=== PATIENT | male | born 1975 | race Hispanic/Latino ===

== ENCOUNTER 2020-03-17 21:19 | Observation (INO) | payer OTHER ==
[~2020-03-17] VITALS: Ht 162.6 cm; Wt 86.9 kg
[2020-03-17 21:30] VITALS: BP 135/87; PULSE 69; RESP 18; TEMP 97.5
[2020-03-17] MEDS ORDERED: ACETAMINOPHEN-CODEINE 300/30MG TAB PO PRN (22:00)
[2020-03-17] MEDS ORDERED: CEFAZOLIN SODIUM 1 GM VIAL IVP SCH (22:00)
--- NOTE | 2020-03-17 22:00 | NUR ---
I called to his answering service at 2141, was given the number for direct connection with the doctor. 2151:At this time got through to informed him patient was already here. Orders received to start patient on Ancef 1 gm IV every 8 hours, Xray of rt hand, MS 2 MG IV every 1 hour as needed for severe pain 7-10, tylenol #3 one to two tablets every 4 to 6 hours prn moderate pain 4-6, Regular diet, NPO after midnight, consent Exploration right thumb possible pinning. 2199: I called household refrigerator mechanic regarding possible surgery for this patient, informed her had already faxed the order to her and OR procedures. She asked what time the doctor wanted to do the surgery. Informed her that he did not specify only stated to make sure the patient was on the OR roster.
[2020-03-17 23:16] VITALS: BP 114/59; PULSE 72; RESP 17; TEMP 98.2
[2020-03-17] MEDS ORDERED: ACETAMINOPHEN-CODEINE 300/30MG TAB ONE (23:27)
[2020-03-18] VITALS (18 sets, daily range): BP systolic 104–125; BP diastolic 60–90; PULSE 54–83; RESP 12–19; TEMP 97.3–98.1
[2020-03-18] MEDS ORDERED: CEFAZOLIN SODIUM 1 GM VIAL ONE ×2 (07:32→13:08)
[2020-03-18] MEDS: MORPHINE SULFATE 2 MG/ML 1ML SYG IM PRN ×2 (11:00→11:01)
--- NOTE | 2020-03-18 12:16 | NUR ---
CM NOTE/IA MEET WITH PATIENT IN ROOM. PER PATIENT IS INDEPENDENT WITH ADLS, LIVES WITH SPOUSE AND HER 4 ADULT CHILDREN, DRIVES,NO DME IN USE AND FEELS SAFE TO RETURN HOME AFTER HOSPITAL DISCHARGE. CURRENTLY PENDING SURGERY WITH DR. LUTZ TO RIGHT THUMB Addendum: 03/18/20 at 1217 by NICOHLE LEE RN CM Amended: Links added.
[2020-03-18] MEDS ORDERED: LIDOCAINE HCL-MPF 2% 10ML AMP IJ ONE ×2 (13:12→13:53)
[2020-03-18] MEDS ORDERED: FENTANYL CITRATE PF 50 MCG/1 ML 2ML VIAL ONE (13:31)
[2020-03-18] MEDS ORDERED: MIDAZOLAM HCL 1 MG/ML 2ML VIAL ONE (13:31)
[2020-03-18] MEDS ORDERED: LACTATED RINGERS 1000ML 1,000 ML IV ONE (13:39)
[2020-03-18] MEDS ORDERED: KETAMINE 50MG/ML SYRINGE 50 MG/ML DISP.SYRIN IV ONE (13:47)
[2020-03-18] MEDS ORDERED: PROPOFOL 10 MG/ML 20ML VIAL IV ONE (13:53)
[2020-03-18] MEDS ORDERED: CEFAZOLIN SODIUM 1 GM VIAL IVP SCH (14:00)
== END 2020-03-18 20:10 | disposition home or self-care (01) ==
LOC: OBSVTOIN 21:19 → 3DH 21:19 → INTOOBSV 21:19
PROVIDERS: ADMIT Surgery Plastic and Reconstructive Surgery; ATTEND Surgery Plastic and Reconstructive Surgery
DX: S62.511A Displaced fracture of proximal phalanx of right thumb, initial encounter for closed fracture (principal); S62.521A Displaced fracture of distal phalanx of right thumb, initial encounter for closed fracture; S61.011A Laceration without foreign body of right thumb without damage to nail, initial encounter; W27.0XXA Contact with workbench tool, initial encounter; Y93.89 Activity, other specified; Y92.89 Other specified places as the place of occurrence of the external cause; Y99.8 Other external cause status
CPT/HCPCS: 26756; 36415; 73120; 80048; 85025; 85610; 85730; 96374; 96376; A4215; A4221; A4222; A4223; A4663; A6223; C1713; G0168; G0378 ×5; J0690 ×4; J2250; J2704; J3010; J3490 ×3; J7030; J7120